=== PATIENT | male | born 1995 | race Caucasian/White ===

== ENCOUNTER 2017-06-29 12:50 | Emergency (ER) | payer BC ==
[2017-06-29 12:56] VITALS: BMI 28.0
[2017-06-29] MEDS ORDERED: METOCLOPRAMIDE HCL INJECTION 10 MG/2 ML VIAL IVPB ONE (13:08)
[2017-06-29] MEDS ORDERED: ACETAMINOPHEN 325 MG TABLET (FP) PO ONE (13:09)
--- NOTE | 2017-06-29 13:10 | PDOC ---
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 As per mother the patient has been experiencing headache and upper neck pain for several days. He states that the the pain is worse with bending the head down. She states that she has been applying hot and cold compresses with mild relief. She reports giving him 600 mg of advil with mild relief as well with last dose 1 hour ago. 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 He denies sore throat, cough, or fever. Mom denies any new medication. No head trauma or fall. <Rosita Lazar - Last Filed: 06/29/17 13:23> <Radha Bazzi - Last Filed: 06/29/17 15:38> - General Chief Complaint: Headache Stated Complaint: NECK PAIN, HEADACHES Time Seen by Provider: 06/29/17 12:58 Past History <Rosita Lazar - Last Filed: 06/29/17 13:23> - Past Medical History Psychiatric Problems: Yes (anxiety) Other medical history: sleep apnea - Psycho/Social/Smoking Cessation Hx Suicidal Ideation: No Smoking History: Never smoked Information on smoking cessation initiated: No Hx Alcohol Use: No Drug/Substance Use Hx: No Substance Use Type: None Hx Substance Use Treatment: No <Radha Bazzi - Last Filed: 06/29/17 15:38> - Past Medical History Allergies/Adverse Reactions: Allergies Allergy/AdvReac Type Severity Reaction Status Date / Time strawberry Allergy Verified 06/29/17 12:56 Home Medications: Ambulatory Orders Escitalopram Oxalate [Lexapro -] 5 mg PO DAILY 11/25/15 Armodafinil [Nuvigil] 200 mg PO DAILY 06/29/17 Minocycline HCl 100 mg PO BID 06/29/17 Review of Systems - Review of Systems Able to Perform ROS?: Yes Comments:: 06/29/17 13:21 GENERAL/CONSTITUTIONAL: No fever or chills. No weakness. HEAD, EYES, EARS, NOSE AND THROAT: No change in vision. No ear pain or discharge. No sore throat. GASTROINTESTINAL: No nausea, vomiting, diarrhea or constipation. GENITOURINARY: No dysuria, frequency, or change in urination. CARDIOVASCULAR: No chest pain or shortness of breath. RESPIRATORY: No cough, wheezing, or hemoptysis. MUSCULOSKELETAL: +neck pain. No joint or muscle swelling or pain. No neck or back pain. SKIN: No rash NEUROLOGIC: +headache. No vertigo, loss of consciousness, or change in strength/ sensation. ENDOCRINE: No increased thirst. No abnormal weight change. HEMATOLOGIC/LYMPHATIC: No anemia, easy bleeding, or history of blood clots. ALLERGIC/IMMUNOLOGIC: No hives or skin allergy. <Rosita Lazar - Last Filed: 06/29/17 13:23> *Physical Exam - Vital Signs Last Vital Signs Temp Pulse Resp BP Pulse Ox 98 F 77 17 116/70 99 06/29/17 12:55 06/29/17 12:55 06/29/17 12:55 06/29/17 12:55 06/29/17 12:55 - Physical Exam Comments: 06/29/17 13:24 GENERAL: +Mild MR baseline mental stauts. Awake, alert, and fully oriented, in no acute distress HEAD: No signs of trauma EYES: PERRLA, EOMI, sclera anicteric, conjunctiva clear ENT: Auricles normal inspection, hearing grossly normal, nares patent, oropharynx clear without exudates. Moist mucosa NECK: Normal ROM, supple, no lymphadenopathy, JVD, or masses LUNGS: Breath sounds equal, clear to auscultation bilaterally. No wheezes, and no crackles HEART: Regular rate and rhythm, normal S1 and S2, no murmurs, rubs or gallops ABDOMEN: Soft, nontender, normoactive bowel sounds. No guarding, no rebound. No masses MUSC: right sided paraspinal tenderness, 5/5 muscle strength. No bony deformity. EXTREMITIES: Normal range of motion, no edema. No clubbing or cyanosis. No cords, erythema, or tenderness NEUROLOGICAL: +Sensation throughout. Cranial nerves II through XII grossly intact. Normal speech. SKIN: Warm, Dry, normal turgor, no rashes or lesions noted <Rosita Lazar - Last Filed: 06/29/17 13:23> - Vital Signs Last Vital Signs Temp Pulse Resp BP Pulse Ox 98 F 77 17 116/70 99 06/29/17 12:55 06/29/17 12:55 06/29/17 12:55 06/29/17 12:55 06/29/17 12:55 <Radha Bazzi - Last Filed: 06/29/17 15:38> ED Treatment Course - LABORATORY CBC & Chemistry Diagram: 06/29/17 13:15 06/29/17 13:15 <Rosita Lazar - Last Filed: 06/29/17 13:23> - LABORATORY CBC & Chemistry Diagram: 06/29/17 13:15 06/29/17 13:15 - RADIOLOGY Radiology Studies Ordered: Category Date Time Status HEAD CT WITHOUT CONTRAST [CT] Stat CT Scan 06/29/17 13:08 Ordered <Radha Bazzi - Last Filed: 06/29/17 15:38> Medical Decision Making - Medical Decision Making 06/29/17 13:17 a/p: 22yo male with a hx of learning disability presents to the ED with neck pain and sánchez x 3 days. No f/c. No rhinorrhea, sore throat, infections, cough. No meningeal signs, no photophobia or phonophobia. -will check labs -will check head ct -pt with paraspinal neck ttp worse with flexion -neuro with mild decreased sensation to L cheek. -pt is nontoxic in appearance, at baseline ms per the mother, who is at the bedside 06/29/17 14:20 pt feeling better. sensation changes have resolved. hypercalcemia (mild) on labs , will add ivf hydration. mild frontal sánchez at this time. 06/29/17 15:21 re-eval: ivf finished. SÁNCHEZ completely resolved. Pt and mother admit to drinking large quantities of iced tea. most likely hypercalcemia from mild dehydration. Recommended pt follow up with PMD. Recommended pt have repeat Ca checked in 1 week. Discussed all reasons to return to the ED and need for follow up. Neck pain resolved with tylenol. Pt nontoxic in appearance. Mother and pt agree with the plan. 06/29/17 15:[address] Garcia (PMD) updated on labs and imaging on the patient. Agrees with the plan. Will see the patient in the office for follow up <Radha Bazzi - Last Filed: 06/29/17 15:38> *DC/Admit/Observation/Transfer - Attestations Scribe Attestion: 06/29/17 13:26 Documentation prepared by VARSHA Lewis, acting as medical laboratory manager for Radha Bazzi DO, MD/. <Rosita Lazar - Last Filed: 06/29/17 13:23> - Discharge Dispostion Admit: No - Attestations Physician Attestion: 06/29/17 13:09 I, Dr. Radha Bazzi DO, attest that this document has been prepared under my direction and personally reviewed by me in its entirety. I further attest, that it accurately reflects all work, treatment, procedures and medical decision -making performed by me. <Radha Bazzi - Last Filed: 06/29/17 15:38> Diagnosis at time of Disposition: Hypercalcemia Cephalgia Qualifiers: Headache type: unspecified Headache chronicity pattern: unspecified pattern Intractability: not intractable Qualified Code(s): R51 - Headache - Discharge Dispostion Disposition: HOME Condition at time of disposition: Stable - Referrals Referrals: Amadeo Garcia [Primary Care Provider] - - Patient Instructions Printed Discharge Instructions: DI for Headache, DI for Hypercalcemia Additional Instructions: Please follow up with your PMD. Please drink plenty of water. Please have your calcium repeated in 1 week. Please return to the ED with any further concerns.
[2017-06-29] MEDS ORDERED: METOCLOPRAMIDE HCL INJECTION 10 MG/2 ML VIAL ONE (13:15)
[2017-06-29] MEDS ORDERED: ACETAMINOPHEN 325 MG TABLET (FP) ONE (13:17)
[2017-06-29 13:25] LABS: BASOPHIL 1.1 % (0-2.0); EOSINOPHIL 1.7 % (0-4.5); MCH 29.9 pg (25.7-33.7); MCHC 34.5 g/dl (32.0-35.9); MEAN CELL VOLUME 86.8 fl (80-96); MEAN PLT VOLUME 7.1 fl (7.5-11.1); NEUTROPHILS 48.5 % (42.8-82.8); PLATELET COUNT 251 K/MM3 (134-434); RDW 12.1 % (11.9-15.9)
[2017-06-29 13:53] LABS: ALBUMIN 4.6 g/dl (3.4-5.0); ANION GAP 6 (8-16); CALCIUM 10.4 mg/dL (8.5-10.1); CO2 33 mmol/L (21-32); GLUCOSE,RANDOM 106 mg/dL (74-106)
[2017-06-29 13:57] LABS: ALK PHOS 99 U/L (45-117); BILIRUBIN,TOTAL 0.4 mg/dL (0.2-1.0); SGOT/AST 23 U/L (15-37); SGPT/ALT 44 U/L (12-78); TOT PROT 8.2 g/dl (6.4-8.2)
[2017-06-29] MEDS ORDERED: SODIUM CHLORIDE 0.9% 1000 ML INFUS.BAG IV ONE (14:21)
[2017-06-29 15:37] VITALS: BP 118/64; PULSE 82; TEMP 98.5
== END 2017-06-29 15:37 | disposition home or self-care (01) ==
LOC: JER 12:50
PROC: 3E033GC Introduction of Other Therapeutic Substance into Peripheral Vein, Percutaneous Approach (ICD-10-PCS; principal; 2017-06-29)
DX: R51 Headache (principal); E83.52 Hypercalcemia; I10 Essential (primary) hypertension; F41.9 Anxiety disorder, unspecified; G47.30 Sleep apnea, unspecified; F70 Mild intellectual disabilities
CPT/HCPCS: 36415; 70450-TC; 80053; 85025; 99282-25

== ENCOUNTER 2024-04-22 16:54 | Emergency (ER) | payer BC ==
[2024-04-22 17:16] VITALS: BP 125/76; PULSE 68; RESP 16; TEMP 97.9; BMI 31.6
[2024-04-22] MEDS ORDERED: CYCLOBENZAPRINE HCL 5 MG TABLET ONE (17:30)
[2024-04-22] MEDS: CYCLOBENZAPRINE HCL 5 MG TABLET PO STA (17:45)
[2024-04-22 17:57] LABS: HEMATOCRIT 47.1 % (35.4-49); HEMOGLOBIN 15.9 G/dL (11.7-16.9); MCH 29.7 pg (25.7-33.7); MCHC 33.8 g/dl (32.0-35.9); MEAN CELL VOLUME 87.9 fl (80-96); MEAN PLT VOLUME 7.4 fl (7.5-11.1); PLATELET COUNT 236.4 10^3/uL (134-434); RBC 5.36 10^6/uL (4.00-5.60); RDW 12.8 % (11.9-15.9); WHITE BLOOD COUNT 4.5 10^3/uL (4.0-10.8)
[2024-04-22 18:08] LABS: ALBUMIN 4.7 g/dl (3.4-5.0); BILIRUBIN,TOTAL 0.4 mg/dl (0.2-1); CREATININE 1.2 mg/dl (0.6-1.3); POTASSIUM 4.2 mmol/L (3.5-5.1); TOT PROT 7.6 g/dl (6.4-8.2)
[2024-04-22 18:15] LABS: PLATELET ESTIMATE ADEQUATE
== END 2024-04-22 18:48 | disposition home or self-care (01) ==
LOC: FER 16:54
DX: R07.9 Chest pain, unspecified (principal); M62.838 Other muscle spasm
CPT/HCPCS: 36415; 71045-TC-FY; 80053; 84484; 85025; 93005; 99285-25